=== PATIENT | male | born 1955 | race Caucasian/White ===

== ENCOUNTER 2020-06-08 09:22 | Emergency (ER) | payer OTHER ==
[~2020-06-08 09:22] MED LIST: ASPIRIN EC81 MG PO; CLONAZEPAM1 MG PO; COLESEVELAM HC625 MG PO; NORCO 5-325 TA1 EACH PO; PLAVIX75 MG PO; PRINIVIL10 MG PO; PROTONIX 40MG T40 MG PO; VITAMIN D310 MCG PO; ZOCOR40 MG PO; ZOFRAN8 MG PO
[2020-06-08 10:19] LABS: ALBUMIN 4.2 g/dL (3.4-5.0); BASOPHIL 0.2 % (0-2); BILIRUBIN - TOTAL 0.7 mg/dL (0.2-1.0); BUN/CREAT RATIO (CALC) 13.7 RATIO; CREATININE 0.95 mg/dL (0.67-1.17); EOSINOPHIL 0.7 % (0-7); GLOBULIN (CALCULATION) 3.3 g/dL; HCT 42.5 % (42.0-52.0); HGB 14.2 g/dl (13.2-18.0); LYMPHOCYTE 5.9 % (15-48); MCH 30.1 pg (25.0-31.0); MCHC 33.4 g/dL (32.0-36.0); MCV 90.2 fL (78.0-100.0); MONOCYTE 8.1 % (0-12); MPV 10.2 fL (6.0-9.5); NEUTROPHIL 84.9 % (41-80); NRBC 0; PLT 206 K/uL (150-400); RBC 4.71 M/uL (4.70-6.00); RDW 13.1 % (11.5-14.0); TOTAL PROTEIN 7.5 g/dL (6.4-8.2); WBC 8.2 K/uL (4.0-10.5)
[2020-06-08 10:57] LABS: LACTIC ACID 1.2 mmol/L (0.4-1.9)
[2020-06-08] MEDS ORDERED: ONDANSETRON ODT4 MG PO (11:54)
[2020-06-08] MEDS ORDERED: BENTYL10 MG PO (11:54)
== END 2020-06-08 12:33 | disposition home or self-care (01) ==
LOC: FER 09:22
PROVIDERS: Emergency Medicine
DX: K52.9 Noninfective gastroenteritis and colitis, unspecified (principal); I51.9 Heart disease, unspecified; Z79.899 Other long term (current) drug therapy; Z79.82 Long term (current) use of aspirin; Z79.02 Long term (current) use of antithrombotics/antiplatelets
CPT/HCPCS: 36415; 74022; 80053; 83605; 83690; 85025; J0500; Q9967

== ENCOUNTER → 2021-06-02 | Day surgery (SDC) | payer OTHER ==
[~2021-06-02] VITALS: Ht 173 cm; Wt 99.0 kg
[~2021-06-02] MED LIST changes: +ASCORBIC ACID500 MG PO; +BENTYL10 MG PO; +NORCO 5/3251 EACH PO; +ONDANSETRON ODT4 MG PO; +PREDNISOLO15 MG/5 ML OU; +RESTASIS1 EACH OD; +TIZANIDINE HCL2 MG PO; +TRELEGY ELLIPT1 EACH INH; +VITAMIN E400 UNI2 PO; +[UNRECOGNIZED DRUG - SUPPLY] OD
== END | disposition home or self-care (01) ==
LOC: FAS 06:41
DX: D64.9 Anemia, unspecified (principal); K21.9 Gastro-esophageal reflux disease without esophagitis; K29.60 Other gastritis without bleeding; K31.9 Disease of stomach and duodenum, unspecified; D12.5 Benign neoplasm of sigmoid colon; D12.3 Benign neoplasm of transverse colon; J44.9 Chronic obstructive pulmonary disease, unspecified; I25.10 Atherosclerotic heart disease of native coronary artery without angina pectoris; I10 Essential (primary) hypertension; E78.00 Pure hypercholesterolemia, unspecified; Z95.5 Presence of coronary angioplasty implant and graft; Z79.82 Long term (current) use of aspirin; Z79.02 Long term (current) use of antithrombotics/antiplatelets; Z90.49 Acquired absence of other specified parts of digestive tract; Z72.89 Other problems related to lifestyle; Z72.0 Tobacco use
CPT/HCPCS: J2250; J2704; J7120